=== PATIENT | male | born 1950 | race Caucasian/White ===

== ENCOUNTER 2018-03-25 10:42 | Inpatient (IN) | payer BC, MEDICARE ==
[2018-03-25 11:49] LABS: BASO # 0.1 10^3/uL (0.0-0.2); BASO % 0.5 % (0.0-1.0); EOS # 0.4 10^3/uL (0.0-0.50); HEMATOCRIT 43.8 % (42.0-52.0); HEMOGLOBIN 14.1 g/dl (13.5-17.5); IMMATURE GRANULOCYTE % 0.4 % (0-3.0); LYMPH # 2.8 10^3/uL (1.5-4.5); LYMPH % 26.9 % (24.0-44.0); MEAN CORPUSCULAR HEMOGLOBIN 28.5 pg (27.0-33.0); MEAN CORPUSCULAR HGB CONC 32.2 g/dl (32.0-36.5); MEAN CORPUSCULAR VOLUME 88.7 fl (80.0-96.0); MONO # 0.7 10^3/uL (0.0-0.8); MONO % 7.2 % (0.0-5.0); NEUTROPHILS # 6.2 10^3/uL (1.8-7.7); PLATELET COUNT, AUTOMATED 224 10^3/uL (150-450); RED BLOOD COUNT 4.94 10^6/uL (4.30-6.10); WHITE BLOOD COUNT 10.2 10^3/uL (4.0-10.0)
[2018-03-25 11:53] LABS: INR 0.94; PROTHROMBIN TIME 12.7 SECONDS (12.4-14.5)
[2018-03-25 11:54] LABS: PARTIAL THROMBOPLASTIN TIME 27.7 SECONDS (26.8-37.9)
[2018-03-25 12:01] LABS: ANION GAP 2 MEQ/L (8-16); BLOOD UREA NITROGEN 33 MG/DL (7-18); CALCIUM LEVEL 8.4 MG/DL (8.8-10.2); CARBON DIOXIDE LEVEL 34 MEQ/L (21-32); CHLORIDE LEVEL 103 MEQ/L (98-107); CK-MB VALUE MASS 3.9 NG/ML (<3.6); CPK CREATINE PHOSPHOKINASE 169 U/L (39-308); CREATININE FOR GFR 1.89 MG/DL (0.70-1.30); GLOMERULAR FILTRATION RATE 38.3 (>49); GLUCOSE, FASTING 111 MG/DL (70-100); POTASSIUM SERUM 4.3 MEQ/L (3.5-5.1); SODIUM LEVEL 139 MEQ/L (136-145); TROPONIN I < 0.02 NG/ML (< 0.10)
[2018-03-25 12:05] LABS: BEDSIDE GLUCOSE 114 MG/DL (80-115)
[2018-03-25] MEDS: LORazepam 2 MG/ML VIAL (J2060) IV ×2 (12:57→13:45)
[2018-03-25] MEDS ORDERED: ACETAMINOPHEN TAB 650MG DOSE (2X325MG) PO (13:30)
[2018-03-25] MEDS ORDERED: ONDANSETRON 4MG/2ML VIAL (J2405) IV (13:30)
[2018-03-25 13:58] LABS: CHOLESTEROL LEVEL 183 MG/DL (<200); CHOLESTEROL RISK RATIO 4.575 (<5); FREE THYROXINE INDEX 1.5 % (1.4-3.8); HDL CHOLESTEROL 40 MG/DL (>40); NON-HDL-C 143 MG/DL; T UPTAKE 35 % (33-40); THYROXINE (T4) 4.4 UG/DL (4.5-12.0); TRIGLYCERIDES LEVEL 200 MG/DL (<150)
[2018-03-25 13:59] LABS: ESTIMATED AVERAGE GLUCOSE 131 MG/DL (60-110); HEMOGLOBIN A1c 6.2 %
[2018-03-25 20:21] LABS: MAGNESIUM LEVEL 2.2 MG/DL (1.8-2.4)
[2018-03-25] MEDS: CARVedilol 12.5 MG TAB PO (20:45)
[2018-03-26 05:01] LABS: HEMATOCRIT 43.6 % (42.0-52.0); HEMOGLOBIN 13.9 g/dl (13.5-17.5); MEAN CORPUSCULAR HEMOGLOBIN 28.6 pg (27.0-33.0); MEAN CORPUSCULAR HGB CONC 31.9 g/dl (32.0-36.5); MEAN CORPUSCULAR VOLUME 89.7 fl (80.0-96.0); PLATELET COUNT, AUTOMATED 211 10^3/uL (150-450); RED BLOOD COUNT 4.86 10^6/uL (4.30-6.10); WHITE BLOOD COUNT 10.2 10^3/uL (4.0-10.0)
[2018-03-26 05:20] LABS: ALBUMIN 3.5 GM/DL (3.2-5.2); ALBUMIN/GLOBULIN RATIO 0.85 (1.00-1.93); ALKALINE PHOSPHATASE 115 U/L (45-117); ALT/SGPT 25 U/L (12-78); ANION GAP 4 MEQ/L (8-16); AST/SGOT 20 U/L (7-37); BILIRUBIN,TOTAL 0.4 MG/DL (0.2-1.0); BLOOD UREA NITROGEN 32 MG/DL (7-18); CALCIUM LEVEL 8.6 MG/DL (8.8-10.2); CARBON DIOXIDE LEVEL 35 MEQ/L (21-32); CHLORIDE LEVEL 105 MEQ/L (98-107); CREATININE FOR GFR 1.81 MG/DL (0.70-1.30); GLOMERULAR FILTRATION RATE 40.3 (>49); GLUCOSE, FASTING 119 MG/DL (70-100); MAGNESIUM LEVEL 2.4 MG/DL (1.8-2.4); POTASSIUM SERUM 4.5 MEQ/L (3.5-5.1); SODIUM LEVEL 144 MEQ/L (136-145); TOTAL PROTEIN 7.6 GM/DL (6.4-8.2)
[2018-03-26 09:44] LABS: CPK CREATINE PHOSPHOKINASE 151 U/L (39-308); TROPONIN I 0.03 NG/ML (< 0.10)
[2018-03-26 09:45] LABS: CK-MB VALUE MASS 2.7 NG/ML (<3.6); MB/CK RELATIVE INDEX 1.78 (< OR =4)
[2018-03-26] MEDS: ASPIRIN 325 MG TAB PO (10:12)
[2018-03-26] MEDS: ATORVASTATIN 20 MG TAB PO (10:15)
[2018-03-26] MEDS: diltiaZEM **CD** 180 MG CAP PO (10:15)
[2018-03-26] MEDS: FUROSEMIDE 80 MG TAB PO ×2 (10:16→21:29)
[2018-03-26] MEDS: OMEGA-3 1050MG CAPSULE PO (10:17)
[2018-03-26] MEDS: CARVedilol 12.5 MG TAB PO ×2 (10:17→21:29)
[2018-03-26] MEDS: ALLOPURINOL 300 MG TAB PO (10:17)
[2018-03-26] MEDS: LOSARTAN 50 MG TAB PO (10:18)
[2018-03-26] MEDS: LORazepam 2 MG/ML VIAL (J2060) IM ×2 (11:50→13:50)
[2018-03-26] MEDS ORDERED: PROHANCE 279.3MG/ML 15ML VIAL (A9576) As Ordered (11:51)
[2018-03-26] MEDS: LORazepam 2 MG/ML VIAL (J2060) IV (14:05)
[2018-03-26] MEDS: CLOPIDOGREL 75 MG TAB PO (18:19)
[2018-03-26 20:40] LABS: BEDSIDE GLUCOSE 128 MG/DL (80-115)
[2018-03-27] MEDS: SLF 3 ML SYR IV ×2 (05:27→14:00)
[2018-03-27] MEDS ORDERED: SLF 3 ML SYR IV (05:30)
[2018-03-27 05:59] LABS: HEMATOCRIT 42.6 % (42.0-52.0); HEMOGLOBIN 13.7 g/dl (13.5-17.5); MEAN CORPUSCULAR HEMOGLOBIN 28.7 pg (27.0-33.0); MEAN CORPUSCULAR HGB CONC 32.2 g/dl (32.0-36.5); MEAN CORPUSCULAR VOLUME 89.1 fl (80.0-96.0); PLATELET COUNT, AUTOMATED 212 10^3/uL (150-450); RED BLOOD COUNT 4.78 10^6/uL (4.30-6.10); RED CELL DISTRIBUTION WIDTH 15.1 % (11.5-14.5)
[2018-03-27 06:27] LABS: ALBUMIN 3.3 GM/DL (3.2-5.2); ALBUMIN/GLOBULIN RATIO 0.79 (1.00-1.93); ALKALINE PHOSPHATASE 120 U/L (45-117); ALT/SGPT 27 U/L (12-78); ANION GAP 5 MEQ/L (8-16); AST/SGOT 27 U/L (7-37); BILIRUBIN,TOTAL 0.4 MG/DL (0.2-1.0); BLOOD UREA NITROGEN 32 MG/DL (7-18); CALCIUM LEVEL 8.5 MG/DL (8.8-10.2); CARBON DIOXIDE LEVEL 33 MEQ/L (21-32); CHLORIDE LEVEL 103 MEQ/L (98-107); CREATININE FOR GFR 1.62 MG/DL (0.70-1.30); GLOMERULAR FILTRATION RATE 45.8 (>49); GLUCOSE, FASTING 124 MG/DL (70-100); MAGNESIUM LEVEL 2.3 MG/DL (1.8-2.4); POTASSIUM SERUM 4.3 MEQ/L (3.5-5.1); SODIUM LEVEL 141 MEQ/L (136-145); TOTAL PROTEIN 7.5 GM/DL (6.4-8.2)
[2018-03-27] MEDS: CARVedilol 12.5 MG TAB PO (08:06)
[2018-03-27] MEDS: diltiaZEM **CD** 180 MG CAP PO (08:06)
[2018-03-27] MEDS: ALLOPURINOL 300 MG TAB PO (08:06)
[2018-03-27] MEDS: OMEGA-3 1050MG CAPSULE PO (08:06)
[2018-03-27] MEDS: LOSARTAN 50 MG TAB PO (08:07)
[2018-03-27] MEDS: ATORVASTATIN 20 MG TAB PO (08:07)
[2018-03-27] MEDS: FUROSEMIDE 80 MG TAB PO (08:07)
[2018-03-27] MEDS: HEPARIN SOD (PORCINE) 5000 UNITS/ML VIAL SQ (08:08)
[2018-03-27] MEDS: CLOPIDOGREL 75 MG TAB PO (09:38)
[2018-03-27] MEDS ORDERED: fentaNYL 100 MCG/2 ML INJECTION (J3010) As Ordered (14:00)
[2018-03-27] MEDS ORDERED: MIDAZOLAM INJ 2 MG/2 ML VIAL (J2250) As Ordered (14:00)
[2018-03-27] MEDS ORDERED: PROPOFOL 200 MG/20 ML VIAL As Ordered (14:47)
[2018-03-27] MEDS: CETACAINE SPRAY 5GM As Ordered (14:54)
[2018-03-27] MEDS: LIDOCAINE VISCOUS 2% SOLN 15ML UDC As Ordered (14:54)
[2018-03-27] MEDS: LR 1,000 ML IV (15:15)
[2018-03-27] MEDS ORDERED: ONDANSETRON 4MG/2ML VIAL (J2405) IV (15:15)
== END 2018-03-27 16:49 | disposition home or self-care (01) | DRG 45 ==
LOC: M ED 10:42 → M ED INP 13:21 → M PCU 15:40
PROC: B24BZZ4 Ultrasonography of Heart with Aorta, Transesophageal (ICD-10-PCS; principal; 2018-03-27 08:18)
DX: I63.9 Cerebral infarction, unspecified (principal); I50.9 Heart failure, unspecified; E66.01 Morbid (severe) obesity due to excess calories; Z68.42 Body mass index [BMI] 45.0-49.9, adult; I13.0 Hypertensive heart and chronic kidney disease with heart failure and stage 1 through stage 4 chronic kidney disease, or unspecified chronic kidney disease; E78.5 Hyperlipidemia, unspecified; M10.9 Gout, unspecified; R27.0 Ataxia, unspecified; R20.2 Paresthesia of skin; D35.2 Benign neoplasm of pituitary gland; R53.1 Weakness; N18.9 Chronic kidney disease, unspecified; Z79.899 Other long term (current) drug therapy; Z88.2 Allergy status to sulfonamides; Z88.8 Allergy status to other drugs, medicaments and biological substances

== ENCOUNTER 2018-12-13 08:57 | Inpatient (IN) | payer OTHER, BC, MEDICARE ==
[~2018-12-13] VITALS: Ht 177.8 cm; Wt 115.8 kg
[~2018-12-13 08:57] MED LIST: ACET65TA OR; ALLO10TA PO; ASPI81TAEC PO; ATEN100T OR; ATOR40TA75 PO; BAYE325T12 PO; CART180C3 PO; CARV25TA PO; CLOP75TA2 PO; COLC0.6T OR; FISH100049 PO; FURO80TA2 PO; HYDR25TA6 OR; HYDR25TA7 OR; LABETALOL OR; LASI80TA OR; LASI80TA3 PO; LISI20TA5 OR; LOSA100T50 PO; MICA80TA OR; PRAV40TA OR; ZYLO300T6 PO
[2018-12-13] MEDS: ALLOPURINOL 300 MG TAB PO SCH (09:00)
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
[2018-12-13] MEDS ORDERED: VITA50005 PO (09:31)
[2018-12-13] MEDS ORDERED: CABE0.5T PO (09:31)
[2018-12-13] MEDS ORDERED: AMLO5TAB6 PO (09:31)
[2018-12-13] MEDS ORDERED: BYDU2INJ7 SQ (09:31)
[2018-12-13 10:10] LABS: BASO # 0.1 10^3/uL (0.0-0.2); BASO % 0.4 % (0.0-1.0); EOS # 0.2 10^3/uL (0.0-0.50); EOS % 1.2 % (0.0-3.0); HEMATOCRIT 47.7 % (42.0-52.0); HEMOGLOBIN 15.3 g/dl (13.5-17.5); LYMPH # 2.4 10^3/uL (1.5-4.5); LYMPH % 17.7 % (24.0-44.0); MEAN CORPUSCULAR HEMOGLOBIN 28.9 pg (27.0-33.0); MEAN CORPUSCULAR HGB CONC 32.1 g/dl (32.0-36.5); MONO # 0.8 10^3/uL (0.0-0.8); MONO % 5.8 % (0.0-5.0); NEUTROPHILS # 10.2 10^3/uL (1.8-7.7); NEUTROPHILS % 74.5 % (36.0-66.0); PLATELET COUNT, AUTOMATED 261 10^3/uL (150-450); WHITE BLOOD COUNT 13.7 10^3/uL (4.0-10.0)
[2018-12-13 10:22] LABS: INR 1.03; PARTIAL THROMBOPLASTIN TIME 27.1 SECONDS (25.4-37.6); PROTHROMBIN TIME 13.6 SECONDS (12.1-14.4)
[2018-12-13 10:27] LABS: ALBUMIN 3.7 GM/DL (3.2-5.2); BILIRUBIN,DIRECT 0.2 MG/DL (0.0-0.2); BILIRUBIN,TOTAL 0.6 MG/DL (0.2-1.0); CALCIUM LEVEL 8.7 MG/DL (8.8-10.2); CREATININE FOR GFR 2.14 MG/DL (0.70-1.30); GLOMERULAR FILTRATION RATE 33.1 (>49); MAGNESIUM LEVEL 2.6 MG/DL (1.8-2.4); MB/CK RELATIVE INDEX 3.05 (< OR =4); POTASSIUM SERUM 4.1 MEQ/L (3.5-5.1); THYROID STIMULATING HORMONE 2.01 uIU/ML (0.358-3.740); TOTAL PROTEIN 7.3 GM/DL (6.4-8.2); TROPONIN I 0.04 NG/ML (< 0.10)
--- NOTE | 2018-12-13 10:29 | REP ---
Clinical: Atrial fibrillation . Comparison: 03/25/2018 . Findings: Mediastinum is stable. Cardiomegaly again noted. The lung greenwood are clear without acute consolidation, effusion, or pneumothorax. Skeletal structures are intact. Impression: Cardiomegaly. No acute cardiopulmonary process appreciated. Electronically Signed by Mauricio Hankins MD 12/13/2018 10:20 A
[2018-12-13] MEDS ORDERED: DIGOXIN INJ 0.5 MG/2 ML AMP (J1160) IV ONE (11:00)
[2018-12-13] MEDS ORDERED: amLODIPine 5 MG TAB PO ONE (11:15)
[2018-12-13] MEDS ORDERED: CARVedilol 12.5 MG TAB PO ONE ×2 (11:15)
[2018-12-13] MEDS: NS 1,000 ML IV SCH (11:21)
[2018-12-13] MEDS ORDERED: FISH120016 PO (11:34)
[2018-12-13] MEDS ORDERED: CLOP75TA2 PO (11:34)
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
[2018-12-13] MEDS ORDERED: MOVE1TAB PO (11:38)
[2018-12-13] MEDS ORDERED: ACETAMINOPHEN TAB 650MG DOSE (2X325MG) PO PRN (11:45)
[2018-12-13 13:25] VITALS: BP 133/67
[2018-12-13] MEDS ORDERED: HEPARIN SOD (PORCINE) 5000 UNITS/ML VIAL SC SCH (14:00)
[2018-12-13] MEDS: CLOPIDOGREL 75 MG TAB PO SCH (14:13)
[2018-12-13] MEDS: ATORVASTATIN 20 MG TAB PO SCH (14:13)
[2018-12-13 15:33] LABS: MB/CK RELATIVE INDEX 2.97 (< OR =4); TROPONIN I 0.04 NG/ML (< 0.10)
[2018-12-13 16:00] VITALS: BP 138/60
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
--- NOTE | 2018-12-13 16:30 | REP ---
CT study of the right humerus without contrast: History: Right upper arm lesion seen on radiographs. CT findings: There is a small focus of dystrophic calcification adjacent to the humeral head consistent with calcific tendonitis. The radiographically visible sclerotic lesion is again seen. There is a radiolucent component with incomplete sclerotic margins along the proximal end of the lesion. A chondroid type matrix is seen within the calcified portion of the lesion. As seen on the radiographs, along the lateral cortex, there is cortical disruption and expansile bowing of the cortex. There is considerable cortical thinning. No extra osseous soft tissue component is seen. The lesion measures 4.1 cm in greatest craniocaudal span by 3.3 cm transverse. There is no evidence of axillary lymphadenopathy. Impression: Somewhat expansile mixed density lesion in the proximal humeral metaphysis with focal cortical erosion and expansile change. Chondroid type matrix. Question chondrosarcoma versus enchondroma. Electronically Signed by William Larsen MD 12/13/2018 04:38 P
[2018-12-13] MEDS: DIGOXIN INJ 0.5 MG/2 ML AMP (J1160) IV SCH (17:47)
--- NOTE | 2018-12-13 19:35 | ECHO ---
DATE OF PROCEDURE: 12/13/2018 REFERRING PHYSICIAN: Dr. Mao Pelaez INDICATION: Abnormal ECG, atrial fibrillation. Height 178 cm Weight 125 kg. DIMENSIONS: IVS 1.3 LV 6.5 LVPW 1.3 LA 4.8 Aorta 3.3 IVC 2.0 RV 3.4 Mitral E wave velocity 71 E prime septal 6.7 E prime lateral 8.5 FINDINGS: The study is of very limited technical quality corresponding to patient's body habitus. The patient is in atrial fibrillation with controlled rate. Left ventricle is moderately dilated. There is global hypokinesis. Unfortunately quality of the study was poor and consequently I cannot reliably estimate left ventricle ejection fraction. I assume at least moderate left ventricular systolic dysfunction. Right ventricle was poorly visualized. Both atria are severely enlarged. Aortic, mitral and tricuspid valves appear normal. Pulmonic valve was not well seen. No pericardial effusion is noted. Inferior vena cava is dilated. Aortic root is normal. Aortic arch and abdominal aorta were not seen. Doppler interrogation reveals no significant aortic, mitral and tricuspid valvular disease. Evaluation of diastolic function is inconclusive due to underlying atrial fibrillation. CONCLUSIONS: 1. Study is of very limited technical quality. 2. Moderately dilated left ventricle with mild LVH and overall at least moderate left ventricular systolic dysfunction. 3. No significant valvular disease. 4. Elevated central venous pressure. 5. Unable to estimate pulmonary artery pressure. 6. Severe biatrial enlargement. COMMENT: Subacute bacterial endocarditis (SBE) is not recommended. 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 MTDD
--- NOTE | 2018-12-13 19:35 | REP ---
Clinical: Pain. Technique: AP, lateral, bilateral oblique views of the right knee. Findings: Lateral view cannot exclude suprapatellar effusion. Mild arthritic changes include cortical irregularity along the femoral condyles with early osteophyte formation along the medial joint compartment, increased sclerosis to the tibial plateau and medial joint space narrowing. No acute fracture or dislocation. Impression: Mild arthritic degenerative changes. Cannot exclude suprapatellar effusion. Electronically Signed by Mauricio Hankins MD 12/13/2018 07:27 P
[2018-12-13 20:00] VITALS: BP 118/71
[2018-12-13] MEDS: CARVedilol 12.5 MG TAB PO SCH (21:31)
[2018-12-14] VITALS (8 sets, daily range): BP systolic 102–152; BP diastolic 60–80
[2018-12-14] MEDS: DIGOXIN INJ 0.5 MG/2 ML AMP (J1160) IV SCH
[2018-12-14 03:18] LABS: BASO # 0.1 10^3/uL (0.0-0.2); BASO % 0.4 % (0.0-1.0); EOS # 0.3 10^3/uL (0.0-0.50); EOS % 2.9 % (0.0-3.0); HEMATOCRIT 39.3 % (42.0-52.0); LYMPH # 2.5 10^3/uL (1.5-4.5); LYMPH % 21.4 % (24.0-44.0); MEAN CORPUSCULAR HEMOGLOBIN 28.8 pg (27.0-33.0); MEAN CORPUSCULAR HGB CONC 32.3 g/dl (32.0-36.5); MEAN CORPUSCULAR VOLUME 89.1 fl (80.0-96.0); MONO # 0.9 10^3/uL (0.0-0.8); MONO % 7.3 % (0.0-5.0); NEUTROPHILS # 7.9 10^3/uL (1.8-7.7); NEUTROPHILS % 67.8 % (36.0-66.0); PLATELET COUNT, AUTOMATED 189 10^3/uL (150-450); RED BLOOD COUNT 4.41 10^6/uL (4.30-6.10); WHITE BLOOD COUNT 11.7 10^3/uL (4.0-10.0)
[2018-12-14 03:22] LABS: HEMOGLOBIN 12.7 g/dl (13.5-17.5)
[2018-12-14 03:41] LABS: ALBUMIN 3.1 GM/DL (3.2-5.2); BILIRUBIN,TOTAL 0.5 MG/DL (0.2-1.0); CALCIUM LEVEL 7.9 MG/DL (8.8-10.2); CREATININE FOR GFR 2.07 MG/DL (0.70-1.30); GLOMERULAR FILTRATION RATE 34.4 (>49); MAGNESIUM LEVEL 2.4 MG/DL (1.8-2.4); POTASSIUM SERUM 4.2 MEQ/L (3.5-5.1); TOTAL PROTEIN 6.1 GM/DL (6.4-8.2)
[2018-12-14 03:42] LABS: MB/CK RELATIVE INDEX 2.14 (< OR =4); TROPONIN I 0.04 NG/ML (< 0.10)
[2018-12-14] MEDS: ATORVASTATIN 20 MG TAB PO SCH (09:46)
[2018-12-14] MEDS: CLOPIDOGREL 75 MG TAB PO SCH (09:46)
[2018-12-14] MEDS: CARVedilol 12.5 MG TAB PO SCH ×2 (09:47→20:29)
[2018-12-14] MEDS: NS 1,000 ML IV SCH ×2 (09:47)
[2018-12-14] MEDS: ALLOPURINOL 300 MG TAB PO SCH (09:47)
[2018-12-14] MEDS: SLF 3 ML SYR IV SCH ×2 (12:00→20:29)
[2018-12-14] MEDS ORDERED: LORazepam 2 MG/ML VIAL (J2060) IV STA (12:13)
[2018-12-14] MEDS ORDERED: SLF 3 ML SYR IV PRN (12:15)
[2018-12-14] MEDS: DIGOXIN 0.125 MG TAB PO SCH (12:56)
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
[2018-12-15 04:45] VITALS: BP 122/86
[2018-12-15] MEDS: SLF 3 ML SYR IV SCH (05:23)
[2018-12-15 05:32] LABS: BASO # 0.1 10^3/uL (0.0-0.2); BASO % 0.6 % (0.0-1.0); EOS # 0.4 10^3/uL (0.0-0.50); EOS % 3.5 % (0.0-3.0); HEMOGLOBIN 12.5 g/dl (13.5-17.5); LYMPH # 2.3 10^3/uL (1.5-4.5); LYMPH % 21.8 % (24.0-44.0); MEAN CORPUSCULAR HEMOGLOBIN 28.8 pg (27.0-33.0); MEAN CORPUSCULAR HGB CONC 32.1 g/dl (32.0-36.5); MEAN CORPUSCULAR VOLUME 89.9 fl (80.0-96.0); MONO # 0.8 10^3/uL (0.0-0.8); MONO % 7.6 % (0.0-5.0); NEUTROPHILS # 7.1 10^3/uL (1.8-7.7); NEUTROPHILS % 66.1 % (36.0-66.0); PLATELET COUNT, AUTOMATED 190 10^3/uL (150-450); RED BLOOD COUNT 4.34 10^6/uL (4.30-6.10); WHITE BLOOD COUNT 10.7 10^3/uL (4.0-10.0)
[2018-12-15 06:12] LABS: BILIRUBIN,TOTAL 0.4 MG/DL (0.2-1.0); CALCIUM LEVEL 7.8 MG/DL (8.8-10.2); CREATININE FOR GFR 1.58 MG/DL (0.70-1.30); DIGOXIN LEVEL 1.4 NG/ML (0.5-2.0); GLOMERULAR FILTRATION RATE 46.9 (>49); MAGNESIUM LEVEL 2.3 MG/DL (1.8-2.4); POTASSIUM SERUM 4.5 MEQ/L (3.5-5.1); TOTAL PROTEIN 6.2 GM/DL (6.4-8.2)
--- NOTE | 2018-12-15 06:41 | ECGEPIP ---
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
[2018-12-15 08:00] VITALS: BP 140/82
[2018-12-15] MEDS: DIGOXIN 0.125 MG TAB PO SCH (08:56)
[2018-12-15] MEDS: CLOPIDOGREL 75 MG TAB PO SCH (08:56)
[2018-12-15 08:57] VITALS: BP 140/82
[2018-12-15] MEDS: CARVedilol 12.5 MG TAB PO SCH (08:57)
[2018-12-15] MEDS: ALLOPURINOL 300 MG TAB PO SCH (08:58)
[2018-12-15] MEDS: ATORVASTATIN 20 MG TAB PO SCH (08:58)
[2018-12-15] MEDS ORDERED: FUROSEMIDE 80 MG TAB PO SCH ×3 (09:00→17:00)
[2018-12-15] MEDS ORDERED: ENTRESTO 24-26MG TABLET (SACUBITRIL/VALSARTAN) PO SCH (09:00)
[2018-12-15] MEDS ORDERED: ENTR1TAB PO (11:57)
[2018-12-15] MEDS ORDERED: DIGO0.12 PO (11:57)
[2018-12-15] MEDS ORDERED: ELIQ5TAB PO (11:57)
[2018-12-15] MEDS ORDERED: FURO80TA2 PO ×2 (11:57→12:57)
[2018-12-15] MEDS ORDERED: LASI80TA3 PO (12:57)
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
[2018-12-16] MEDS ORDERED: APIXABAN 5 MG TAB (ELIQUIS) PO SCH (09:00)
== END 2018-12-15 13:01 | disposition home or self-care (01) | DRG 201 ==
LOC: M ED 08:57 → M ED INP 11:37 → M PCU 13:26
PROVIDERS: ADMIT Internal Medicine; ATTEND Internal Medicine
DX: I48.0 Paroxysmal atrial fibrillation (principal); E11.22 Type 2 diabetes mellitus with diabetic chronic kidney disease; I42.9 Cardiomyopathy, unspecified; I13.0 Hypertensive heart and chronic kidney disease with heart failure and stage 1 through stage 4 chronic kidney disease, or unspecified chronic kidney disease; E66.01 Morbid (severe) obesity due to excess calories; I50.9 Heart failure, unspecified; N18.3 Chronic kidney disease, stage 3 (moderate); E78.5 Hyperlipidemia, unspecified; M10.9 Gout, unspecified; Z86.73 Personal history of transient ischemic attack (TIA), and cerebral infarction without residual deficits; Z79.899 Other long term (current) drug therapy; M19.011 Primary osteoarthritis, right shoulder; S00.03XA Contusion of scalp, initial encounter; M89.8X2 Other specified disorders of bone, upper arm; V47.5XXA Car driver injured in collision with fixed or stationary object in traffic accident, initial encounter; Y92.410 Unspecified street and highway as the place of occurrence of the external cause

== ENCOUNTER → 2019-02-04 | Outpatient (CLI) | payer MEDICARE ==
[~2019-02-04] MED LIST changes: +AMIO200T PO; +AMLO5TAB6 PO; +BYDU2INJ7 SQ; +CABE0.5T PO; +DIGO0.12 PO; +ELIQ5TAB PO; +ENTR1TAB PO; +FISH120016 PO; +LIDOCAINE 1% MDV 20ML VIAL As Ordered ONE; +MOVE1TAB PO; +NORV5TAB PO; +VITA50005 PO
--- NOTE | 2019-02-04 15:29 | REP ---
CT-GUIDED RIGHT HUMERUS BIOPSY The procedure was performed under the direct supervision of Dr. Larsen. The patient has a history of an intermedullary bone lesion in the region of the surgical neck of the proximal humerus seen on a previous MRI dated 12/14/2018. The risks and benefits of the procedure were explained to the patient and informed consent was obtained. The right humeral bone lesion was localized using CT guidance. The skin was prepped and draped in a sterile fashion. 1% lidocaine was used as a local anesthetic. Using CT guidance a 16-gauge bone biopsy needle system was inserted and two core biopsy samples were obtained and sent to lab. The patient tolerated the procedure well and there were no immediate complications. After the appropriate amount of monitored convalescence the patient was discharged from the department. Reviewed by MATTHEW Reyes 02/04/2019 02:54 P Electronically Signed by William Larsen MD 02/04/2019 03:21 P
== END ==
LOC: M RADPRO 08:15
PROVIDERS: ATTEND Orthopaedic Surgery
DX: D16.01 Benign neoplasm of scapula and long bones of right upper limb (principal)

== ENCOUNTER 2019-03-13 05:52 | Day surgery (SDC) | payer MEDICARE ==
[~2019-03-13] VITALS: Ht 177.8 cm; Wt 128.8 kg
[~2019-03-13 05:52] MED LIST changes: -LIDOCAINE 1% MDV 20ML VIAL As Ordered ONE
[2019-03-13] MEDS ORDERED: LR 1,000 ML IV ONE (06:00)
[2019-03-13] MEDS ORDERED: LIDOCAINE 2% INJ 100 MG/5 ML SDV (FOR ANES.) As Ordered ONE (07:12)
[2019-03-13] MEDS ORDERED: PROPOFOL 200 MG/20 ML VIAL As Ordered ONE (07:12)
--- NOTE | 2019-03-13 08:13 | RO ---
DATE OF PROCEDURE: 03/13/2019 DIAGNOSIS: Atrial fibrillation. PROCEDURE: D/C Cardioversion SURGEON: Dr. Dee Michelle ANESTHESIOLOGY: Joselito Lyons CRNA BRIEF HISTORY: Mr. Farris is a 68-year-old man who has had persistent atrial fibrillation for several months. He was initially rate controlled and loaded with amiodarone. After he failed to resume sinus rhythm, we decided to proceed with DC cardioversion. The nature of the procedure, the possible risks and complications, as well as alternative therapy were discussed with the patient on an outpatient basis. He did sign appropriate consent. PROCEDURE NOTE: Procedure was performed in recovery room. The patient was in fasting condition. After appropriate time-out was taken and the patient was examined, defibrillator patches were applied in anterior position. After appropriate level of sedation was accomplished, he was cardioverted in synchronized fashion with 200 joules of energy. It led to tenriism of sinus rhythm. Postprocedure ECG reveals sinus bradycardia with ventricular rate 59 beats per minute, first-degree AV block and left bundle branch block, which has been chronic. CONCLUSION: Successful DC cardioversion of atrial fibrillation into sinus rhythm. COMMENTS: The patient will continue his chronic medications. Due to relative bradycardia, I am going to decrease the dose of carvedilol to 12.5 mg twice a day. Followup will be arranged for next week. MTDD
[2019-03-13 08:20] VITALS: BP 123/66
--- NOTE | 2019-03-13 09:45 | ECGEPIP ---
[facility] Test Date: 2019-03-13 Pat Name: SLIM SONI Department: Room: - Gender: Male Media Relations Director: JAYRO : 1950 Requested By: Dee Micehlle Order Number: [id number] Reading MD: Les Agustin Measurements Intervals [place] Rate: 71 P: [place]: -1 QRS: QRSD: 160 T: 29 QT: 477 QTc: 521 Interpretive Statements ATRIAL FIBRILLATION MARKED LEFT AXIS DEVIATION Nonspecific intraventricular conduction delay. Decreased heart rate compared with 12/13/2018. Electronically Signed on 03-13-2019 9:45:23 EDT by Les Agustin
--- NOTE | 2019-03-13 09:47 | ECGEPIP ---
[facility] Test Date: 2019-03-13 Pat Name: SLIM SONI Department: Room: - Gender: Male Product Development: : 1950 Requested By: Dee Michelle Order Number: [id number] Reading MD: Les Agustin Measurements Intervals [place] Rate: 59 P: 69 [place]: 268 QRS: QRSD: 163 T: 30 QT: 507 QTc: 505 Interpretive Statements SINUS BRADYCARDIA WITH FIRST DEGREE AV BLOCK MARKED LEFT AXIS DEVIATION Nonspecific intraventricular conduction delay versus atypical LBBB. Decrease heart rate and no longer in atrial fibrillation. With 03/13/2019 at 0644 hours. Electronically Signed on 03-13-2019 9:47:22 EDT by Les Agustin
== END 2019-03-13 08:33 | disposition home or self-care (01) ==
LOC: M SDC 05:52
PROVIDERS: ATTEND Internal Medicine Cardiovascular Disease
DX: I48.1 Persistent atrial fibrillation (principal); I10 Essential (primary) hypertension; E78.5 Hyperlipidemia, unspecified; Z79.01 Long term (current) use of anticoagulants; Z86.73 Personal history of transient ischemic attack (TIA), and cerebral infarction without residual deficits; Z88.8 Allergy status to other drugs, medicaments and biological substances; Z79.899 Other long term (current) drug therapy; J45.909 Unspecified asthma, uncomplicated; F32.9 Major depressive disorder, single episode, unspecified; M10.9 Gout, unspecified; Z88.2 Allergy status to sulfonamides

== ENCOUNTER 2019-09-03 07:54 | Day surgery (SDC) | payer MEDICARE ==
[~2019-09-03] VITALS: Ht 177.8 cm; Wt 134.7 kg
[~2019-09-03 07:54] MED LIST changes: +LIDOCAINE 2% INJ 100 MG/5 ML SDV (FOR ANES.) As Ordered ONE; +PROPOFOL 200 MG/20 ML VIAL As Ordered ONE
[2019-09-03] MEDS ORDERED: NS 1,000 ML IV ONE (08:30)
[2019-09-03] MEDS ORDERED: LABETALOL HCL 100 MG/20 ML VIAL As Ordered ONE (09:04)
[2019-09-03] MEDS ORDERED: PROPOFOL 200 MG/20 ML VIAL As Ordered ONE ×2 (09:22→09:37)
--- NOTE | 2019-09-03 10:06 | ROOR ---
Patient Name: London Farris Procedure Date: 09/03/2019 8:56 AM Date of : 1950 Age: 68 Room: [facility] Gender: Male Note Status: Finalized Procedure: Colonoscopy Indications: Positive Cologuard test Providers: Naga Dave MD Referring MD: Sri Gomez MD Requesting Provider: Medicines: Monitored Anesthesia Care Complications: No immediate complications. Procedure: Pre-Anesthesia Assessment: - Prior to the procedure, a History and Physical was performed, and patient medications and allergies were reviewed. The patient is competent. The risks and benefits of the procedure and the sedation options and risks were discussed with the patient. All questions were answered and informed consent was obtained. Patient identification and proposed procedure were verified by the physician, the nurse and the anesthesiologist in the procedure room. Mental Status Examination: alert and oriented. Airway Examination: normal oropharyngeal airway and neck mobility. Respiratory Examination: clear to auscultation. CV Examination: normal. Prophylactic Antibiotics: The patient does not require prophylactic antibiotics. Prior Anticoagulants: The patient has taken Eliquis (apixaban), last dose was 3 days prior to procedure. ASA Grade Assessment: II - A patient with mild systemic disease. After reviewing the risks and benefits, the patient was deemed in satisfactory condition to undergo the procedure. The anesthesia plan was to use monitored anesthesia care (MAC). Immediately prior to administration of medications, the patient was re-assessed for adequacy to receive sedatives. The heart rate, respiratory rate, oxygen saturations, blood pressure, adequacy of pulmonary ventilation, and response to care were monitored throughout the procedure. The physical status of the patient was re-assessed after the procedure. The Colonoscope was introduced through the anus and advanced to the cecum, identified by appendiceal orifice and ileocecal valve. The colonoscopy was performed without difficulty. The patient tolerated the procedure well. The quality of the bowel preparation was good. The ileocecal valve, appendiceal orifice, and rectum were photographed. Scope insertion time was 3 minutes. Scope withdrawal time was 15 minutes. The total duration of the procedure was 25 minutes. Findings: The perianal and digital rectal examinations were normal. Six sessile polyps were found in the ascending colon. The polyps were 6 to 20 mm in size. These polyps were removed with a hot snare. Resection and retrieval were complete. To close a defect after polypectomy, six hemostatic clips were successfully placed. There was no bleeding at the end of the procedure. A 10 mm polyp was found in the descending colon. The polyp was sessile. The polyp was removed with a cold snare. Resection and retrieval were complete. For hemostasis, one hemostatic clip was successfully placed. There was no bleeding at the end of the procedure. Non-bleeding external and internal hemorrhoids were found during retroflexion. The hemorrhoids were medium-sized. Impression: - Six 6 to 20 mm polyps in the ascending colon, removed with a hot snare. Resected and retrieved. Clips were placed. - One 10 mm polyp in the descending colon, removed with a cold snare. Resected and retrieved. Clip was placed. - Non-bleeding external and internal hemorrhoids. Recommendation: - Patient has a contact number available for emergencies. The signs and symptoms of potential delayed complications were discussed with the patient. Return to normal activities tomorrow. Written discharge instructions were provided to the patient. - Clear liquid diet for 1 day, then advance as tolerated to high fiber diet. - Continue present medications. - Miralax 1 capful (17 grams) in 8 ounces of water PO daily. - Resume Eliquis (apixaban) at prior dose in 2 days. Refer to primary physician for further adjustment of therapy. - Await pathology results. - Repeat colonoscopy in 6 months for retreatment and for surveillance of multiple polyps. - Telephone GI clinic if symptomatic. - Return to GI clinic in [facility] (address [address], [address], [place], [address]) in 4 -- 6 weeks. Please call GI clinic @ [phone] for apppointment date and time. - Return to primary care physician. Naga Dave MD Naga Dave MD 09/03/2019 10:06:15 AM Electronically signed by Naga Dave MD Number of Addenda: 0 Note Initiated On: 09/03/2019 8:56 AM Estimated Blood Loss: Estimated blood loss was minimal.
[2019-09-03 10:23] VITALS: BP 184/93
== END 2019-09-03 10:24 | disposition home or self-care (01) ==
LOC: M OPP 07:54
PROVIDERS: ATTEND Internal Medicine Gastroenterology
DX: D12.2 Benign neoplasm of ascending colon (principal); D12.4 Benign neoplasm of descending colon; K64.8 Other hemorrhoids; R19.5 Other fecal abnormalities; I48.91 Unspecified atrial fibrillation; I50.9 Heart failure, unspecified; Z79.899 Other long term (current) drug therapy; Z88.2 Allergy status to sulfonamides; Z88.8 Allergy status to other drugs, medicaments and biological substances

== ENCOUNTER → 2019-11-29 | Outpatient (CLI) | payer MEDICARE ==
[~2019-11-29] MED LIST changes: -DIGO0.12 PO; +DIGO0.123 PO; -LIDOCAINE 2% INJ 100 MG/5 ML SDV (FOR ANES.) As Ordered ONE; -PROPOFOL 200 MG/20 ML VIAL As Ordered ONE
[2019-11-29 09:59] LABS: CALCIUM LEVEL 8.5 MG/DL (8.8-10.2); CREATININE FOR GFR 1.95 MG/DL (0.70-1.30); GLOMERULAR FILTRATION RATE 36.7 (>49); POTASSIUM SERUM 4.2 MEQ/L (3.5-5.1)
== END ==
LOC: M LAB 08:15
PROVIDERS: ATTEND Nurse Practitioner Family
DX: I42.9 Cardiomyopathy, unspecified (principal)

== ENCOUNTER → 2019-11-29 | Outpatient (CLI) | payer MEDICARE | LOC: M LAB 08:25 | PROVIDERS: ATTEND Nurse Practitioner Family | DX: E22.1 Hyperprolactinemia (principal) ==

== ENCOUNTER → 2019-11-29 | Outpatient (CLI) | payer MEDICARE ==
[2019-11-29 13:16] LABS: HEMOGLOBIN A1c 6.1 %
== END ==
LOC: M LAB 08:18
PROVIDERS: ATTEND Psychiatry & Neurology Neurology
DX: E11.42 Type 2 diabetes mellitus with diabetic polyneuropathy (principal); R26.81 Unsteadiness on feet

== ENCOUNTER → 2019-11-29 | Outpatient (CLI) | payer MEDICARE ==
[2019-11-29 10:05] LABS: CHOLESTEROL RISK RATIO 4.175 (<5)
[2019-11-29 10:11] LABS: CREATININE, URINE 27.8 MG/DL; MAU/CREAT RATIO 726.6 MCG/MG (0.0-30.0)
== END ==
LOC: M LAB 08:22
PROVIDERS: ATTEND Family Medicine
DX: E78.2 Mixed hyperlipidemia (principal); E11.69 Type 2 diabetes mellitus with other specified complication

== ENCOUNTER → 2019-12-13 | Outpatient (CLI) | payer MEDICARE ==
--- NOTE | 2019-12-13 08:02 | REP ---
Renal ultrasound: Comparison is 11/22/2010. The right kidney measures 13.3 x 5.5 x 5.9 cm. Left kidney measures 12.2 x 4.5 x 5.6 cm. The right renal cortex is echogenic. This is compatible with medical renal disease. The echogenicity of the left renal cortex is normal. There is no hydronephrosis on the right on the left. There are no renal calculi. There are no solid renal masses. There is a right renal lower pole Bosniak type one 6.6 cm cyst. There is a left renal lower pole Bosniak type 1 3.1 cm cyst. With color Doppler assessment there are bilateral ureteral jets into the bladder. Impression: The right renal cortex is echogenic. The left renal cortex demonstrates normal echogenicity. There is a single cyst in each kidney as described. There are bilateral ureteral jets into the bladder. Electronically Signed by Singh Dominguez MD 12/13/2019 07:54 A
== END ==
LOC: M RAD 06:38
PROVIDERS: ATTEND Internal Medicine Nephrology
DX: N18.4 Chronic kidney disease, stage 4 (severe) (principal); N28.1 Cyst of kidney, acquired

== ENCOUNTER → 2020-03-28 | Outpatient (CLI) | payer MEDICARE ==
[~2020-03-28] MED LIST changes: +TORS100T PO; +TRUL10IN IM
--- NOTE | 2020-04-02 11:13 | SLEEPCENT ---
DATE OF PROCEDURE: 03/28/2020 INTERPRETATION: Nocturnal polysomnography was performed for evaluation of sleep physiology in this patient with a history of excessive somnolence, nonrestorative sleep. 7 hours and 50 minutes of data were reviewed. There were 377.5 minutes of sleep identified. Sleep latency was short at 5 minutes. REM latency was mildly prolonged at 140-minute sleep architecture initially fragmented improved after interventions were made. Overall sleep efficiency was 83.3%. The patient's electrocardiogram showed what appeared to be an underlying sinus rhythm with an average heart rate of 60 beats per minute. There were frequent ventricular ectopic beats noted. EEG showed reasonably normal waveforms for awake and sleep. There were 375 respiratory events identified of 10 seconds in duration or greater for an apnea-hypopnea index of 59.6 events were obstructive and associated with oxygen desaturations into the 70s. Having clearly established the presence of obstructive sleep apnea syndrome, testing was stopped shortly after 1:00 a.m. for the application of pressure therapy. The patient was fit with a [employer] full-face mask of medium size, 4 cm of water pressure was applied to the circuit and the lights were extinguished. Obstructive respiratory events persisted prompting an increase in the CPAP pressure. For a period of time, a bilevel device was applied. Optimal pressure was unable to be achieved during the titration, though significant improvement in sleep was seen at a CPAP pressure 14. There was some emergent central apneas, scattered limb activity was appreciated as well limb movement arousal index of 0.2. IMPRESSION: Severe obstructive sleep apnea syndrome (G47.31). Apnea-hypopnea index 59.6. RECOMMENDATIONS: An optimal CPAP pressure was unable to be identified during the study. Nonetheless, improvement was seen with CPAP pressures of 14-16 and initiation of CPAP at this level may be helpful. It is strongly recommended the patient be returned to sleep disorder center for a full night titration study an effort to identify an optimal pressure.
== END ==
LOC: M SLEEP 20:00
PROVIDERS: ATTEND Nurse Practitioner Family
DX: G47.31 Primary central sleep apnea (principal)

== ENCOUNTER → 2020-04-11 | Outpatient (CLI) | payer MEDICARE ==
--- NOTE | 2020-04-17 19:56 | SLEEPCENT ---
DATE OF PROCEDURE: 04/11/2020 ORDERED BY: CLAUDIO Lopez Nocturnal polysomnography was performed for full night titration of this patient with severe obstructive sleep apnea syndrome, incompletely titrated at previous testing. For this study, the patient was fit with a [employer] F[employer] full face mask of medium size, 5 cm of water pressure were applied to the circuit and the lights were extinguished. 7 hours and 40 minutes of data were reviewed. There were 337 minutes of sleep identified. Sleep latency was prolonged at 15.5 minutes. Rapid eye movement (REM) latency was short at 69 minutes. Sleep architecture improved over the course of the study with some fragmentation persisting. Three REM cycles were seen. Overall sleep efficiency was 74.9%. The patient's electrocardiogram showed supraventricular rhythm with mildly wide complexes, average heart rate 52 per minute. EEG showed normal waveforms for awake and sleep. Respiratory events persisted despite progressive continuous positive airway pressure (CPAP) pressures, and despite optimal mask fit and minimal air leak, the patient was changed to a bilevel device. Best sleep was seen on bilevel pressure therapy - inspiratory 25 over expiratory 21. There was some persistent limb activity. Limb movement arousal index was 12.5. IMPRESSION: Severe obstructive sleep apnea syndrome (G47.33). RECOMMENDATIONS: Nightly use of bilevel pressure therapy - inspiratory 25 over expiratory 21.
== END ==
LOC: M SLEEP 20:00
PROVIDERS: ATTEND Nurse Practitioner Family
DX: G47.33 Obstructive sleep apnea (adult) (pediatric) (principal)

== ENCOUNTER → 2020-04-11 | Outpatient (CLI) | payer MEDICARE | LOC: M LABSMTC 08:19 | PROVIDERS: ATTEND Anesthesiology | DX: Z11.59 Encounter for screening for other viral diseases (principal); Z03.89 Encounter for observation for other suspected diseases and conditions ruled out | CPT/HCPCS: C9803; U0003 ==

== ENCOUNTER 2020-04-14 08:12 | Day surgery (SDC) | payer MEDICARE ==
[~2020-04-14] VITALS: Ht 177.8 cm; Wt 146.5 kg
[~2020-04-14 08:12] MED LIST changes: -AMIO200T PO; +AMIO200T3 PO; +AMLO1TAB24 PO; -AMLO5TAB6 PO; +LIDOCAINE 2% 100MG/5ML SDV (FOR ANES.) As Ordered ONE; +NS 1,000 ML IV ONE; +propofoL 200 MG/20 ML VIAL As Ordered ONE
[2020-04-14] MEDS ORDERED: propofoL 200 MG/20 ML VIAL As Ordered ONE (09:44)
[2020-04-14 10:15] VITALS: BP 128/74
--- NOTE | 2020-04-14 10:15 | ROOR ---
Patient Name: London Farris Procedure Date: 04/14/2020 9:02 AM Date of : 1950 Age: 69 Room: [facility] Gender: Male Note Status: Finalized Procedure: Colonoscopy Indications: Screening for colorectal malignant neoplasm Providers: Naga Dave MD Referring MD: Sri Gomez MD Requesting Provider: Medicines: Monitored Anesthesia Care Complications: No immediate complications. Procedure: Pre-Anesthesia Assessment: - Prior to the procedure, a History and Physical was performed, and patient medications and allergies were reviewed. The patient is competent. The risks and benefits of the procedure and the sedation options and risks were discussed with the patient. All questions were answered and informed consent was obtained. Patient identification and proposed procedure were verified by the physician, the nurse and the anesthesiologist in the procedure room. Mental Status Examination: alert and oriented. Airway Examination: normal oropharyngeal airway and neck mobility. Respiratory Examination: clear to auscultation. CV Examination: normal. Prophylactic Antibiotics: The patient does not require prophylactic antibiotics. Prior Anticoagulants: The patient has taken no previous anticoagulant or antiplatelet agents. ASA Grade Assessment: II - A patient with mild systemic disease. After reviewing the risks and benefits, the patient was deemed in satisfactory condition to undergo the procedure. The anesthesia plan was to use monitored anesthesia care (MAC). Immediately prior to administration of medications, the patient was re-assessed for adequacy to receive sedatives. The heart rate, respiratory rate, oxygen saturations, blood pressure, adequacy of pulmonary ventilation, and response to care were monitored throughout the procedure. The physical status of the patient was re-assessed after the procedure. The Colonoscope was introduced through the anus and advanced to the cecum, identified by appendiceal orifice and ileocecal valve. The colonoscopy was performed without difficulty. The patient tolerated the procedure well. The quality of the bowel preparation was good. The ileocecal valve, appendiceal orifice, and rectum were photographed. Scope insertion time was 3 minutes. Scope withdrawal time was 15 minutes. The total duration of the procedure was 20 minutes. Findings: The perianal and digital rectal examinations were normal. Four sessile polyps were found from the rectum to the ascending colon. The polyps were 4 to 12 mm in size. These polyps were removed with a cold snare. Resection and retrieval were complete. For hemostasis, two hemostatic clips were successfully placed. There was no bleeding at the end of the procedure. A 8 mm scar was found in the ascending colon. The scar tissue was healthy in appearance. Adjacent mucosal findings include nodularity. Biopsies were taken with a cold forceps for histology. Multiple small and large-mouthed diverticula were found from sigmoid to descending colon. There was no evidence of diverticular bleeding. Non-bleeding external and internal hemorrhoids were found during retroflexion. The hemorrhoids were medium-sized. Impression: - Four 4 to 12 mm polyps from rectum to ascending colon, removed with a cold snare. Resected and retrieved. Clips were placed. - Scar in the ascending colon. Biopsied. - Severe diverticulosis from sigmoid to descending colon. There was no evidence of diverticular bleeding. - Non-bleeding external and internal hemorrhoids. Recommendation: - Patient has a contact number available for emergencies. The signs and symptoms of potential delayed complications were discussed with the patient. Return to normal activities tomorrow. Written discharge instructions were provided to the patient. - High fiber diet. - Continue present medications. - Await pathology results. - Repeat colonoscopy in 3 years for surveillance based on pathology results and for surveillance of multiple polyps. - Telephone GI clinic for pathology results in 1 week. - Return to primary care physician. Naga Dave MD Naga Dave MD 04/14/2020 10:14:43 AM Electronically signed by Naga Dave MD Number of Addenda: 0 Note Initiated On: 04/14/2020 9:02 AM Estimated Blood Loss: Estimated blood loss was minimal.
== END 2020-04-14 10:28 | disposition home or self-care (01) ==
LOC: M OPP 08:12
PROVIDERS: ATTEND Internal Medicine Gastroenterology
DX: Z12.11 Encounter for screening for malignant neoplasm of colon (principal); D12.2 Benign neoplasm of ascending colon; K62.1 Rectal polyp; K57.90 Diverticulosis of intestine, part unspecified, without perforation or abscess without bleeding; L90.5 Scar conditions and fibrosis of skin

== ENCOUNTER → 2021-02-27 | Outpatient (CLI) | payer MEDICARE ==
[~2021-02-27] MED LIST changes: +ASPI-569 PO; -ASPI81TAEC PO; -LIDOCAINE 2% 100MG/5ML SDV (FOR ANES.) As Ordered ONE; -NS 1,000 ML IV ONE; -propofoL 200 MG/20 ML VIAL As Ordered ONE
== END ==
LOC: M LABSMTC 11:12
PROVIDERS: ATTEND Anesthesiology
DX: Z01.818 Encounter for other preprocedural examination (principal); Z20.822 Contact with and (suspected) exposure to COVID-19

== ENCOUNTER 2021-03-04 06:00 | Day surgery (SDC) | payer MEDICARE ==
[~2021-03-04] VITALS: Ht 177.8 cm; Wt 145.6 kg
[~2021-03-04 06:00] MED LIST changes: +ATOR80TA59 PO; +CALC1CAP31 PO; +FEBU80TA PO; +LR 1,000 ML IV SCH
[2021-03-04] MEDS ORDERED: ASPI81CH33 PO (06:41)
[2021-03-04] MEDS ORDERED: LISI20TA33 PO (06:43)
[2021-03-04] MEDS ORDERED: propofoL 200 MG/20 ML VIAL As Ordered ONE (07:24)
[2021-03-04] MEDS ORDERED: LIDOCAINE 2% 100MG/5ML SDV (FOR ANES.) As Ordered ONE (07:24)
[2021-03-04] MEDS ORDERED: fentaNYL 100 MCG/2 ML INJECTION (J3010) As Ordered ONE (07:24)
[2021-03-04] MEDS ORDERED: ONDANSETRON 4MG/2ML VIAL As Ordered ONE (07:25)
[2021-03-04] MEDS ORDERED: MIDAZOLAM INJ 2MG/2ML VIAL (J2250 PER 1MG) As Ordered ONE (07:25)
[2021-03-04] MEDS ORDERED: dexameTHASONE 4 MG/ML 1ML VIAL (J1100 PER 1MG) As Ordered ONE (07:25)
--- NOTE | 2021-03-04 08:15 | ECGEPIP ---
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
--- NOTE | 2021-03-04 08:19 | ECGEPIP ---
[facility] Test Date: 2021-03-04 Pat Name: SLIM SONI Department: Room: - Gender: Male [employer] Operator: LARISA : 1950 Requested By: Dee Michelle Order Number: [id number] Reading MD: Les Haider Measurements Intervals [place] Rate: 78 P: 33 IA: 252 QRS: -50 QRSD: 154 T: 72 QT: 442 QTc: 503 Interpretive Statements Sinus rhythm with 1st degree AV block with premature atrial complexes with aberrant conduction Left axis deviation Left bundle branch block Similar to tracing done 03-13-19, improved artifact when compared to previous t tracing done 655 on same date Electronically Signed on 03-04-2021 8:19:25 EDT by Les Haider
[2021-03-04] MEDS ORDERED: ONDANSETRON 4MG/2ML VIAL IV PRN (08:25)
[2021-03-04] MEDS ORDERED: LR 1,000 ML IV SCH (08:25)
[2021-03-04] MEDS ORDERED: flumazeniL 0.5 MG/5 ML VIAL As Ordered ONE (08:36)
[2021-03-04 09:10] VITALS: BP 124/62
--- NOTE | 2021-03-04 10:29 | RO ---
OPERATIVE NOTE DATE OF OPERATION: 03/04/2021 PREOPERATIVE DIAGNOSIS: POSTOPERATIVE DIAGNOSIS: PROCEDURE: Cardioversion. SURGEON: Dee Michelle MD FIELD SERVICE TECHNICIAN: ANESTHESIA: LUCIA Bellamy and ___MD INDICATION: Atrial fibrillation. BRIEF HISTORY: Mr. Farris is a 70-year-old man with known coronary artery disease and ischemic cardiomyopathy with ejection fraction approximately 40-45%. He has history of atrial fibrillation that was cardioverted approximately 2 years ago. He relapsed in January of 2021. The arrhythmia is not well tolerated and in spite of using Amiodarone and high dose Carvedilol the rate control is suboptimal. Consequently we decided to proceed with cardioversion in attempt to restore sinus rhythm. The nature of the procedure, the potential risks and complications were discussed on outpatient basis. He signed appropriate consent. DESCRIPTION OF PROCEDURE: Procedure was performed in the recovery room. The patient presented in fasting condition. After appropriate time out was taken and all monitors were applied, he was cardioverted using 300 joules of energy delivered in synchronized fashion. It led to hoahaoism of sinus rhythm with occasional ventricular ectopy. The patient did have desaturation into the low 80s very briefly and required placement of oral airway and briefly Ambu bag bagging. But otherwise there were no complications; there was no hypotension.12-lead ECG is pending at the time of my dictation. Patient will be discharged on his chronic medications. We plan to see him in follow up in our office next week.
== END 2021-03-04 09:37 | disposition home or self-care (01) ==
LOC: M SDC 06:00
PROVIDERS: ATTEND Internal Medicine Cardiovascular Disease
DX: I48.0 Paroxysmal atrial fibrillation (principal); I13.0 Hypertensive heart and chronic kidney disease with heart failure and stage 1 through stage 4 chronic kidney disease, or unspecified chronic kidney disease; I50.22 Chronic systolic (congestive) heart failure; E78.5 Hyperlipidemia, unspecified; I25.10 Atherosclerotic heart disease of native coronary artery without angina pectoris; R60.0 Localized edema; R73.03 Prediabetes; M10.9 Gout, unspecified; Z86.73 Personal history of transient ischemic attack (TIA), and cerebral infarction without residual deficits; G47.33 Obstructive sleep apnea (adult) (pediatric); N18.30 Chronic kidney disease, stage 3 unspecified; E66.9 Obesity, unspecified; Z88.8 Allergy status to other drugs, medicaments and biological substances; Z79.899 Other long term (current) drug therapy; Z79.01 Long term (current) use of anticoagulants; Z79.82 Long term (current) use of aspirin; Z79.84 Long term (current) use of oral hypoglycemic drugs
CPT/HCPCS: 92960; 93005; J1100; J2250; J2405; J3010

== ENCOUNTER → 2021-06-26 | Outpatient (CLI) | payer MEDICARE ==
[~2021-06-26] MED LIST changes: +ASPI81CH33 PO; +ERGO500029 PO; +LISI20TA33 PO; -LR 1,000 ML IV SCH
== END ==
LOC: M LABSMTC 09:44
PROVIDERS: ATTEND Internal Medicine Cardiovascular Disease
DX: Z11.52 Encounter for screening for COVID-19 (principal)